=== PATIENT | female | born 1935 | race Caucasian/White ===

== ENCOUNTER 2020-09-04 11:05 | Emergency (ER) | payer OTHER, SELFPAY ==
[2020-09-04 11:35] VITALS: BP 177/95; PULSE 87; RESP 16; TEMP 36.6; O2SAT 97
[2020-09-04 13:04] VITALS: BP 177/82; PULSE 76; RESP 14; O2SAT 97
--- NOTE | 2020-09-04 13:06 | ED_ITS ---
HPI - Wound/Laceration General Chief Complaint: Wound/Laceration Stated Complaint: colon resection 07/03, incision is opening Time Seen by Provider: 09/04/20 11:09 Source: patient and family Mode of arrival: Family Vehicle Limitations: no limitations History of Present Illness HPI narrative: 84-year-old female nonsmoker with history of diabetes presents with her daughter and a chief complaint of some drainage from a midline incision she received for partial bowel resection due to diverticulitis and perforation on July 03. She denies nausea, vomiting or diarrhea. She is passing gas without difficulty. She denies any fever, chills. There is no redness noted around the incision or foul-smelling drainage. She feels quite well. She called the on-call surgeon for the group in [place] where she had her surgery and she was instructed to present to the emergency department for evaluation. Onset (ago): day(s) Patient tetanus UTD: Yes Related Data Allergies Allergy/AdvReac Type Severity Reaction Status Date / Time bacitracin Allergy Unknown Verified 09/04/20 11:40 Review of Systems Constitutional Constitutional: Denies chills, Denies fatigue, Denies fever(s), Denies frequent falls, Denies lethargy and Denies weakness Eyes Eyes: Denies change in vision, Denies eye discharge, Denies irritation and Denies loss of vision ENT Ears, Nose, Mouth, and Throat: Denies change in voice, Denies dizziness, Denies neck pain, Denies sore throat and Denies throat swelling Cardiovascular Cardiovascular: Denies chest pain, Denies irregular heart rhythm, Denies lightheadedness, Denies palpitations, Denies dyspnea, Denies dyspnea on exertion and Denies orthopnea Respiratory Respiratory: Denies cough, Denies dyspnea, Denies dyspnea on exertion and Denies wheezing Gastrointestinal Gastrointestinal: Denies abdominal pain, Denies change in bowel habits, Denies diarrhea, Denies nausea and Denies vomiting Musculoskeletal Musculoskeletal: Denies neck pain and Denies numbness Integumentary/Breasts Skin/Breast: Denies pruritus, Denies erythema, Denies rash and Reports wounds Neurologic Neurologic: Denies behavioral changes, Denies confusion, Denies dizziness, Denies frequent falls, Denies loss of vision, Denies numbness and Denies weakness Psychiatric Psychiatric: Denies anxiety, Denies behavioral changes, Denies confusion, Denies depression, Denies homicidal ideation and Denies suicidal ideation Endocrine Endocrine: Denies fatigue, Denies flushing and Denies palpitations Hematologic/Lymphatic Hematologic/Lymphatic: Denies easy bruising Allergic/Immunologic Allergic/Immunologic: Denies urticaria, Denies throat swelling and Denies wheezing Patient History Social History Smoking Status: Never smoker Smoking Status: Never smoker alcohol intake frequency: 0-2 drinks per day Substance Use Type: does not use Exam Narrative Exam Narrative: GEN: AOx3, well-developed, no obvious distress EYES: Pupils are equal, round, and reactive to light and accommodation. Extraoccular muscles are intact bilaterally. There is no subconjunctival hemorrhage or exudate. CHEST: Lungs are clear to auscultation bilaterally and free of wheezes, rales, or rhonchi. Heart rate is regular rhythm, there are no murmurs, clicks, rubs, or gallops. There is no chest wall tenderness. ABD: Abdomen is soft and nontender. There is no guarding or rebound. Bowel tatum nds are normal in all 4 quadrants. There is no mass or organomegaly. Midline incision is largely clear, dry and intact. There is a small, pea-sized purple region with a very small, pinhole region of spontaneous drainage of a clear, straw-colored fluid. She has no surrounding erythema and no pain whatsoever to deep palpation. Culture obtained and sent to the lab EXT: Full painless ROM of all extremities with no loss of sensation or strength. SKIN: Warm, pink, and dry. No erythema or rash Initial Vital Signs Initial Vital Signs: Vital Signs Temperature 97.9 F 09/04/20 11:35 Pulse Rate 87 09/04/20 11:35 Respiratory Rate 16 09/04/20 11:35 Blood Pressure 177/95 H 09/04/20 11:35 Pulse Oximetry 97 09/04/20 11:35 Course Orders Ordered: ED Orders 09/04/20 11:43 Wound Culture and Gram Stain Stat Consultations Consultation #1: call to [facility] at [place]. He had spoken with them earlier. After discussion of the patient's history and physical exam we surely a pain in the labs and a CT are not indicated. Given how well she appears antibiotics are not indicated. Patient has an appointment with primary care provider on Sunday and can not obtain wound care referral at that time. I offered referral to our Wound Care Service, however she has experience with the director of home health services but would prefer to go back there. Vital Signs Vital signs: Vital Signs - 8 hr 09/04/20 11:35 Temperature 97.9 F Pulse Rate 87 Respiratory Rate 16 Blood Pressure 177/95 H Pulse Oximetry 97 MDM - Wound/Laceration MDM Narrative Medical decision making narrative: Very well-appearing female with no systemic findings, no signs of sepsis and reassuring exam presents with a small area of wound breakdown and drainage of clear fluid. Culture sent to the lab. No indication for advanced imaging at this point in time. She has close follow-up arranged. Return precautions given and questions answered to her apparent satisfaction Discharge Plan Departure Patient Disposition: Home Clinical Impression: Seroma after procedure Instructions: DI for Wound Dehiscence Activity Restrictions/Additional Instructions: *You have been diagnosed with [minimal dehiscence of surgical wound, no sign of infection.] *What to do: *Take medications as directed *Follow up with your surgeon in 2-3 days, call for an appointment. Let them know you were seen in the Emergency Department and that we ask that you be seen in follow up *Return to ER if you should have any new, worsening or concerning symptoms, such as [fever, chills, nausea, vomiting, redness around the wound or other concerning symptoms] Referrals: Brianda Aguila MD [Primary Care Provider] -
--- NOTE | 2020-09-06 09:13 | PC.NURSE ---
positive blood culture result reviesed with Dr Maxwell, ED provider today. Per Dr Maxwell script for doxy 100mg po bid x7days called into [facility]. Patient contacted via cellphone and notified.
--- NOTE | 2020-09-06 09:25 | PC.NURSE ---
spoke to [facility] at [facility] to notify them of a positive MRSA from wound culture.
== END 2020-09-04 13:07 | disposition home or self-care (01) ==
PROVIDERS: Emergency Provider Emergency Medicine; PCP Internal Medicine
DX: K91.872 Postprocedural seroma of a digestive system organ or structure following a digestive system procedure (principal)
CPT/HCPCS: 87070; 87077; 87186; 87205; 99282; 99283

== ENCOUNTER 2020-09-09 18:13 | Emergency (ER) | payer OTHER, SELFPAY ==
[2020-09-09 18:43] VITALS: BP 174/102; PULSE 100; RESP 18; TEMP 36.5; O2SAT 100; BMI 35.6
--- NOTE | 2020-09-09 19:43 | PC.NURSE ---
Pt reports colon resection surgery with Dr Alexander in [place] for diverticulitis abscess with perforation. Has been healing and noticed an area that started to dehisce with potential bowel vs adipose protruding from wound. Denies any pain. Was sent here by her home film examiner. Denies fever, SOB as well. Covered with clean dressing.
[2020-09-09 19:51] LABS: Add Manual Diff / Slide Review NO; Basophils Absolute Auto 100 /uL (0-100); Basophils Percent Auto 1.2 % (0-2); Eosinophils Absolute Auto 200 /uL (0-450); Eosinophils Percent Auto 2.9 % (2-4); Hematocrit 38.7 % (36-46); Lymphocytes Absolute Auto 3300 /uL (1100-4500); Lymphocytes Percent Auto 41.3 % (25-40); Mean Corpuscular HGB Conc 33.7 % (30-36); Mean Corpuscular Hemoglobin 31.7 PG (26-34); Mean Corpuscular Volume 94.2 fL (80-100); Monocytes Absolute Auto 1100 /uL (0-900); Monocytes Percent Auto 13.5 % (3-14); Neutrophils Absolute Auto 3300 /uL (1500-7000); Neutrophils Percent Auto 41.1 % (50-75); Platelet Count 233 X10^3/uL (150-400); Red Blood Cell Count 4.11 X10^6/uL (4.0-5.2); Red Cell Distribution Width 14.7 % (11.6-14.8); White Blood Cell Count 8.1 X10^3/uL (4.5-11.0)
[2020-09-09 19:54] LABS: INR 3.2 (0.9-1.3); Prothrombin Time 36.4 SECONDS (10.1-12.7)
[2020-09-09 19:59] LABS: Alanine Aminotransferase 21 IU/L (<35); Albumin 4.2 g/dL (3.5-5.0); Albumin Globulin Ratio 1.2 (1.0-2.8); Alkaline Phosphatase 82 U/L (38-126); Aspartate Aminotransferase 30 IU/L (14-36); BUN Creatinine Ratio 27.3 (6-22); Bilirubin Total 0.3 mg/dL (0.2-1.3); Blood Urea Nitrogen 30 mg/dL (7-17); Calcium 9.8 mg/dL (8.4-10.2); Carbon Dioxide 28 mmol/L (22-32); Chloride 101 mmol/L (98-107); Estimated Glomerular Filt Rate 47.4 mL/min (>60); Globulin 3.5 g/dL (1.7-4.1); Glucose 135 mg/dL (80-110); HEMOLYSIS < 15 (0-50); Potassium 3.7 mmol/L (3.4-5.1); Sodium 137 mmol/L (137-145); Total Protein 7.7 g/dL (6.3-8.2)
[2020-09-09 20:34] LABS: Bacteria Urine None Seen; RBC Urine None Seen (0-5/HPF)
[2020-09-09 20:36] LABS: Appearance Urine UA CLEAR; Bilirubin Urine UA NEGATIVE (NEGATIVE); Color Urine UA YELLOW; Glucose Urine UA NEGATIVE (Negative); Ketones Urine UA NEGATIVE (NEGATIVE); Leukocyte Esterase Urine UA NEGATIVE (NEGATIVE); Nitrite Urine UA NEGATIVE (Negative); Occult Blood Urine UA NEGATIVE (Negative); Protein Urine UA NEGATIVE (Negative); Urobilinogen Urine UA 0.2 E.U./dL (0.2)
[2020-09-09 20:58] LABS: Culture Indicated Urine Cult Not Indicated; Squamous Epithelial Cell Urine 5-10 /HPF (0-5/HPF); WBC Urine 1-5/HPF (0-5/HPF)
--- NOTE | 2020-09-09 21:05 | ED.SKABFB ---
HPI - Skin/Abscess/Foreign Bdy General Chief complaint: Skin/Abscess/Foreign Body Stated complaint: abd incision wound s/p surgery, protrusion Time Seen by Provider: 09/09/20 20:45 History of Present Illness HPI narrative: 84-year-old woman with history of diabetes, hypertension, atrial fibrillation anticoagulated on Coumadin with recent perforated diverticulitis and bowel resection done at [facility] on July 03. She has had difficulty with abdominal wound healing since then. Was seen by her wound care nurse today there is a 1.5 cm defect in the skin with an approximately 5 mm defect in the fascia with a small amount of peritoneum protruding. She has no abdominal pain, fevers, diarrhea, constipation and is otherwise feeling well. The wound care nurse asked her to come in for further evaluation as the surgery clinic apparently is not going to be open on Sunday for follow-up. Briefly spoke with Dr. Vizcaino, surgeon on-call this evening. He requested an abdominal CT scan which is being facilitated, with study to be sent to [facility]. He will arrange for outpatient follow-up. Related Data Allergies Allergy/AdvReac Type Severity Reaction Status Date / Time bacitracin Allergy Unknown Verified 09/04/20 11:40 Review of Systems Review of Systems Narrative: Pertinent positive and negative findings as per HPI Remainder of review of systems is otherwise unremarkable for Constitutional: Fevers, chills, weakness ENT: No sore throat, neck pain, ear pain CV: Chest pain, palpitations, Respiratory: Cough, wheeze, dyspnea GI: Nausea, vomiting, diarrhea, : Dysuria, hematuria, Patient History Medical History (Updated 09/09/20 @ 23:39 by Edel Payne MD) Chronic atrial fibrillation Diabetes History of diverticulitis Hypertension Social History Smoking Status: Never smoker Smoking Status: Never smoker alcohol intake frequency: 0-2 drinks per day Substance Use Type: does not use Exam Narrative Exam Narrative: General: Alert appropriate in no acute distress Respiratory: Able to speak in full sentences, no obvious respiratory distress Cardiac: Irregular without murmurs Skin: No obvious rashes, warm and dry Abdomen: Good bowel tones, soft, nontender. Midline infraumbilical incision partially healed with 1/2 cm skin defect with small fascial defect underneath and peritoneum protruding that cannot be completely reduced. There is a 1.5cm area proximal to this where the skin is thinning significantly and there is concern for developing breakdown there is well Neurologic: Grossly intact no obvious asymmetries or abnormalities Extremities: No lower extremity edema Psych; appropriate insight and affect, cooperative Initial Vital Signs Initial Vital Signs: Vital Signs Temperature 97.7 F 09/09/20 18:43 Pulse Rate 100 H 09/09/20 18:43 Respiratory Rate 18 09/09/20 18:43 Blood Pressure 174/102 H 09/09/20 18:43 Pulse Oximetry 100 09/09/20 18:43 Course Orders Ordered: ED Orders 09/09/20 19:38 Complete Blood Count AUTO DIFF Stat Comprehensive Metabolic Panel Stat Prothrombin Time INR Stat 09/09/20 20:29 Urinalysis and Microscopic Stat 09/09/20 21:07 CT abdomen pelvis w con Stat Discontinued Medications Diltiazem HCl (Diltiazem 30 Mg Tablet) 180 mg PO NOW ONE Stop: 09/09/20 21:45 Last Admin: 09/09/20 22:16 Dose: Not Given Documented by: KATHIE Diltiazem HCl (Diltiazem Cd 180 Mg Cap) 180 mg PO NOW ONE Stop: 09/09/20 22:12 Last Admin: 09/09/20 22:16 Dose: 180 mg Documented by: KATHIE Sodium Chloride (Normal Saline 0.9%) 1,000 mls @ 1,000 mls/hr IV BOLUS ONE Stop: 09/09/20 22:06 Last Infusion: 09/09/20 22:16 Dose: 0 mls/hr Documented by: Admin: 09/09/20 21:12 Dose: 1,000 mls/hr Documented by: KATHIE Vital Signs Vital signs: Vital Signs - 8 hr 09/09/20 18:43 09/09/20 23:48 Temperature 97.7 F Pulse Rate 100 H 82 Respiratory Rate 18 17 Blood Pressure 174/102 H 179/92 H Pulse Oximetry 100 97 MDM - Skin/Abscess/Foreign Bdy Medical Records Attestation: I reviewed the patient's medical records. Lab Data Attestation: I reviewed the patient's lab results. Result diagrams: 09/09/20 19:38 09/09/20 19:38 Labs: Lab Results 09/09/20 09/09/2021 Range/Units 19:38 19:38 19:38 WBC 8.1 (4.5-11.0) X10^3/uL RBC 4.11 (4.0-5.2) X10^6/uL Hgb 13.0 (12.0-16.0) g/dL Hct 38.7 (36-46) % MCV 94.2 (80-100) fL MCH 31.7 (26-34) PG MCHC 33.7 (30-36) % RDW 14.7 (11.6-14.8) % Plt Count 233 (150-400) X10^3/uL Neut % (Auto) 41.1 L (50-75) % Lymph % (Auto) 41.3 H (25-40) % [place] % (Auto) 13.5 (3-14) % Eos % (Auto) 2.9 (2-4) % Baso % (Auto) 1.2 (0-2) % Neut # (Auto) 3300 (8010-4576) /uL Lymph # (Auto) 3300 (8180-1689) /uL [place] # (Auto) 1100 H (0-900) /uL Eos # (Auto) 200 (0-450) /uL Baso # (Auto) 100 (0-100) /uL PT 36.4 H (10.1-12.7) SECONDS INR 3.2 H (0.9-1.3) Sodium 137 (137-145) mmol/L Potassium 3.7 (3.4-5.1) mmol/L Chloride 101 (98-107) mmol/L Carbon Dioxide 28 (22-32) mmol/L BUN 30 H (7-17) mg/dL Creatinine 1.10 H (0.52-1.04) mg/dL Estimated GFR 47.4 L (>60) mL/min BUN/Creatinine Ratio 27.3 H (6-22) Glucose 135 H (80-110) mg/dL Calcium 9.8 (8.4-10.2) mg/dL Total Bilirubin 0.3 (0.2-1.3) mg/dL AST 30 (14-36) IU/L ALT 21 (<35) IU/L Alkaline Phosphatase 82 (38-126) U/L Total Protein 7.7 (6.3-8.2) g/dL Albumin 4.2 (3.5-5.0) g/dL Globulin 3.5 (1.7-4.1) g/dL Albumin/Globulin Ratio 1.2 (1.0-2.8) Urine Color Urine Appearance Urine pH (4.5-8.0) Ur Specific [place] (1.000-1.035) Urine Protein (Negative) Urine Glucose (UA) (Negative) g/dL Urine Ketones (NEGATIVE) Urine Occult Blood (Negative) Urine Nitrate (Negative) Urine Bilirubin (NEGATIVE) Urine Urobilinogen (0.2) E.U./dL Ur Leukocyte Esterase (NEGATIVE) Urine RBC (0-5/HPF) Urine WBC (0-5/HPF) Ur Squamous Epith Cells (0-5/HPF) Urine Bacteria (None) Ur Culture Indicated? 09/09/20 Range/Units 20:29 WBC (4.5-11.0) X10^3/uL RBC (4.0-5.2) X10^6/uL Hgb (12.0-16.0) g/dL Hct (36-46) % MCV (80-100) fL MCH (26-34) PG MCHC (30-36) % RDW (11.6-14.8) % Plt Count (150-400) X10^3/uL Neut % (Auto) (50-75) % Lymph % (Auto) (25-40) % [place] % (Auto) (3-14) % Eos % (Auto) (2-4) % Baso % (Auto) (0-2) % Neut # (Auto) (9384-2293) /uL Lymph # (Auto) (1383-4507) /uL [place] # (Auto) (0-900) /uL Eos # (Auto) (0-450) /uL Baso # (Auto) (0-100) /uL PT (10.1-12.7) SECONDS INR (0.9-1.3) Sodium (137-145) mmol/L Potassium (3.4-5.1) mmol/L Chloride (98-107) mmol/L Carbon Dioxide (22-32) mmol/L BUN (7-17) mg/dL Creatinine (0.52-1.04) mg/dL Estimated GFR (>60) mL/min BUN/Creatinine Ratio (6-22) Glucose (80-110) mg/dL Calcium (8.4-10.2) mg/dL Total Bilirubin (0.2-1.3) mg/dL AST (14-36) IU/L ALT (<35) IU/L Alkaline Phosphatase (38-126) U/L Total Protein (6.3-8.2) g/dL Albumin (3.5-5.0) g/dL Globulin (1.7-4.1) g/dL Albumin/Globulin Ratio (1.0-2.8) Urine Color Yellow Urine Appearance Clear Urine pH 6.0 (4.5-8.0) Ur Specific [place] 1.020 (1.000-1.035) Urine Protein Negative (Negative) Urine Glucose (UA) Negative (Negative) g/dL Urine Ketones Negative (NEGATIVE) Urine Occult Blood Negative (Negative) Urine Nitrate Negative (Negative) Urine Bilirubin Negative (NEGATIVE) Urine Urobilinogen 0.2 (0.2) E.U./dL Ur Leukocyte Esterase Negative (NEGATIVE) Urine RBC None seen (0-5/HPF) Urine WBC 1-5/hpf (0-5/HPF) Ur Squamous Epith Cells 5-10 /hpf H (0-5/HPF) Urine Bacteria None seen (None) Ur Culture Indicated? Cult not indicated Imaging Data CT scan - abdomen/pelvis: Radiologist's Impression: Impression: Edema and stranding midline abdominal wall above and below the umbilicus Midline abdominal surgical incision is noted Small amount of air in stranding suggests this is recent there is fluid midline abdominal wall beginning above The umbilicus this extends in the linear fashion 5-6 cm inferior to the umbilicus. Stranding extends from the skin to the underlying rectus muscle. More focal 1.9 cm fluid collection noted along the deep aspects of this area. More focal central fluid noted around the umbilicus and midline rectus muscle. Possibilities include seroma, hematoma as well as abscess. 1 cm nonspecific cystic abnormality at the tail of the pancreas, possibly benign cystic neoplasm, recommend 3-6 month follow-up. MDM Narrative Medical decision making narrative: 84-year-old woman with complications after diverticulitis with bowel resection surgery in June. Currently being followed by wound care nurse with seroma and some wound dehiscence midline abdominal scar. There is an area of what appears to be peritoneum protruding through what palpates as the small fascial defect midline. There is no evidence of inflammation and no draining fluid. CT scan focal central fluid noted around the umbilical site and midline rectus muscles. Care is reviewed with , general surgeon on-call at [facility] in [place] or her original surgery was done and her follow-up care is continuing. He suggested a CT scan of the abdomen and will contact the outpatient surgical clinic to arrange for close follow-up. A non adherent dressing was placed over the wound and patient was discharged home without additional complication. Discharge Plan Departure Patient Disposition: Home Clinical Impression: Seroma after procedure Abdominal wound dehiscence Qualifiers: Encounter type: subsequent encounter Qualified Code(s): T81.30XD - Disruption of wound, unspecified, subsequent encounter Instructions: DI for Wound Dehiscence Activity Restrictions/Additional Instructions: Thank you for coming in today I have talked with the surgeon in [place] installation and repair technician this evening. He said that he would talk to the office and asked them to contact you for scheduling a follow-up visit in the near future, hopefully tomorrow. The CT scan that was done shows some edema around the wound consistent with what we can see from the outside. There is no obvious infection at this time. Please finish the antibiotics that you are currently taking For wound care, the small open area needs to remain moist, I have used iodoform gauze to help with this. If you do not hear from the surgeon's office by 10 tomorrow, please call them again Referrals: Brianda Aguila MD [Primary Care Provider] -
--- NOTE | 2020-09-09 21:07 | DI.CT.S_ITS ---
PROCEDURE: CT ABDOMEN PELVIS W CON INDICATIONS: abdominal wound dehiscense TECHNIQUE: After the administration of intravenous contrast, 5 mm thick sections acquired from the diaphragm to the symphysis. 5 mm coronal and sagittal reformats were acquired. For radiation dose reduction, the following was used: automated exposure control, adjustment of mA and/or kV according to patient size. COMPARISON: [facility], CT, CT ABDOMEN PELVIS WITH CONTRAST, 06/30/2020, 14:28. FINDINGS: Image quality: Excellent. ABDOMEN: Lung bases: Lung bases are clear. Left atrial enlargement. Right atrium is also enlarged. Solid organs: Liver is normal in size and enhancement. Multiple benign-appearing hepatic cysts. Gallbladder is unremarkable. Biliary system is non dilated. Pancreas enhances normally. 8 mm cystic lesion in the body/tail region of the pancreas, not significantly changed in short interval. Spleen is normal in size and enhancement. No adrenal nodules. Kidneys demonstrate normal size and enhancement, without hydronephrosis. Peritoneum and bowel: Interval sigmoid resection. Bowel loops demonstrate normal wall thickness and caliber. No free fluid or air. Nodes and vessels: No retroperitoneal or mesenteric adenopathy by size criteria. Aorta and inferior vena cava are normal in size. Miscellaneous: Midline vertical surgical incision with findings consistent with recent postsurgical change, including thickening in the midline subcutaneous tissues and thickening of the midline anterior abdominal wall. No drainable fluid collection identified. PELVIS: Genitourinary: Bladder wall thickness is normal. Miscellaneous: Small fat containing left inguinal hernia. No inguinal adenopathy. Bones: No suspicious bony lesions. No vertebral body compression fractures. IMPRESSION: 1. Recent sigmoid resection. Ventral vertical postsurgical changes in the anterior abdominal wall and midline subcutaneous tissues without drainable fluid collection. 2. Tiny, 8 mm cystic lesion of the pancreas, possibly IPMN. Unchanged in short interval. Consider follow-up CT in 6-12 months. 3. Cardiomegaly with biatrial enlargement. Comment: Final report is concordant with preliminary interpretation provided by [facility]. Dictated by: Domo Real M.D. on 09/10/2020 at 9:11 Approved by: Domo Real M.D. on 09/10/2020 at 9:23
[2020-09-09] MEDS: SODIUM CHLORIDE 0.9% 1,000 ML 1000 ML IV (21:12)
[2020-09-09] MEDS: dilTIAZem CD 180 MG CAP PO (22:16)
[2020-09-09 23:48] VITALS: BP 179/92; PULSE 82; RESP 17; O2SAT 97
== END 2020-09-09 23:49 | disposition home or self-care (01) ==
PROVIDERS: Emergency Provider Emergency Medicine; PCP Internal Medicine
DX: K91.873 Postprocedural seroma of a digestive system organ or structure following other procedure (principal); T81.30XD Disruption of wound, unspecified, subsequent encounter
CPT/HCPCS: 36415; 74177; 80053; 81001; 85025; 85610; 96360; 99284; Q9967

== ENCOUNTER → 2021-11-11 15:34 | Outpatient (CLI) | payer OTHER, SELFPAY ==
--- NOTE | 2021-11-11 | DI.MRI.S_ITS ---
PROCEDURE: MR HEAD/BRAIN WO CON INDICATIONS: Cognitive impairment TECHNIQUE: Non-contrast axial T1 spin echo, axial T2 fast spin echo, sagittal and axial FLAIR, coronal T2 fast spin echo, axial gradient echo, axial diffusion and ADC through the brain. COMPARISON: None. FINDINGS: Image quality: Excellent. CSF spaces: Ventricles appear symmetric in size and shape. Basal cisterns are patent. No extra-axial fluid collections. Brain: No intracranial bleeds or mass effects. There is cerebral volume loss for age. There are periventricular and deep white matter chronic small vessel ischemic changes. Brainstem appears normal. Diffusion-weighted images show no acute ischemic insults. No chronic ischemic insults. Normal intravascular flow voids are present. Skull and face: Calvarial bone marrow is normal in signal. Orbits are normal. Note is made of bilateral lens replacements. Sinuses: Sinuses and mastoids are clear. IMPRESSION: Brain MRI within normal limits for age, with brain parenchymal volume loss and chronic small vessel ischemic change. Dictated by: Manny Flores M.D. on 11/11/2021 at 15:36 Approved by: Manny Flores M.D. on 11/11/2021 at 15:36
== END ==
PROVIDERS: PCP Internal Medicine; Referring Provider Specialist; Visit Provider Specialist
DX: R41.89 Other symptoms and signs involving cognitive functions and awareness (principal)
CPT/HCPCS: 70551